=== PATIENT | male | born 1985 | race Caucasian/White ===

== ENCOUNTER 2018-10-17 08:16 | Emergency (ER) | payer OTHER ==
[2018-10-17] MEDS ORDERED: Diphtheria,Pertussis(Acell),Tetanus Vaccine 0.5 ML SDV IM ONE (08:32)
--- NOTE | 2018-10-17 08:57 | EDM.PDOC ---
ED HPI GENERAL MEDICAL PROBLEM - General Chief Complaint: Laceration Stated Complaint: SLICED FINGER ON BLADE [id number] Time Seen by Provider: 10/17/18 08:57 Source of Information: Reports: Patient, Family, RN, RN Notes Reviewed History Limitations: Reports: No Limitations - History of Present Illness INITIAL COMMENTS - FREE TEXT/NARRATIVE: Pt to ER with c/o laceration to the right middle finger. He states he was at work and at about 0800 he opened a tool box that had a razor blade in it, slicing the finger on the pad at the distal joint. Patient is unsure when his last tetanus was updated. Onset: Today, Sudden Location: Reports: Upper Extremity, Right Quality: Reports: Sharp Severity: Mild Improves with: Reports: None Right Middle Finger-Middle Pain Score (Numeric/FACES): 2 - Related Data Allergies Allergy/AdvReac Type Severity Reaction Status Date / Time amoxicillin Allergy Cannot Verified 10/17/18 08:20 Remember Home Meds: Home Meds . [No Known Home Meds] 10/17/18 [History] Past Medical History - Past Health History Medical/Surgical History: Denies Medical/Surgical History HEENT History: Reports: None Cardiovascular History: Reports: None Respiratory History: Reports: None Gastrointestinal History: Reports: None Genitourinary History: Reports: None Musculoskeletal History: Reports: None Neurological History: Reports: None Psychiatric History: Reports: None Endocrine/Metabolic History: Reports: None Hematologic History: Reports: None Immunologic History: Reports: None Oncologic (Cancer) History: Reports: None Dermatologic History: Reports: None - Infectious Disease History Infectious Disease History: Reports: None - Past Surgical History Head Surgeries/Procedures: Reports: None Social & Family History - Family History Family Medical History: Noncontributory - Tobacco Use Smoking Status *Q: Never Smoker Second Hand Smoke Exposure: No - Caffeine Use Caffeine Use: Reports: Soda - Recreational Drug Use Recreational Drug Use: No ED ROS GENERAL - Review of Systems Review Of Systems: ROS reveals no pertinent complaints other than HPI. ED EXAM, SKIN/RASH Exam: See Below Exam Limited By: No Limitations General Appearance: Alert, WD/WN, No Apparent Distress Eye Exam: Bilateral Eye: EOMI, Normal Inspection Ears: Normal External Exam, Hearing Grossly Normal Nose: Normal Inspection Throat/Mouth: Normal Inspection, Normal Voice, No Airway Compromise Head: Atraumatic, Normocephalic Neck: Normal Inspection, Supple, Non-Tender, Full Range of Motion Respiratory/Chest: No Respiratory Distress, Lungs Clear, Normal Breath Sounds, No Accessory Muscle Use, Chest Non-Tender Cardiovascular: Normal Peripheral Pulses, Regular Rate, Rhythm, No Edema, No Gallop, No JVD, No Murmur, No Rub Peripheral Pulses: 2+: Radial (L), Radial (R) GI/Abdominal: Normal Bowel Sounds, Soft, Non-Tender (Male) Exam: Deferred Rectal (Males) Exam: Deferred Back Exam: Normal Inspection, Full Range of Motion, NT Extremities: Normal Inspection, Normal Range of Motion, Non-Tender, No Pedal Edema, Normal Capillary Refill Neurological: Alert, Oriented, CN II-XII Intact, Normal Cognition, Normal Gait, Normal Reflexes, No Motor/Sensory Deficits Psychiatric: Normal Affect, Normal Mood Skin: Warm, Dry, Normal Color, No Rash Location, Skin: Upper Extremity, Right Characteristics: Linear, Other (3cm laceration to pad of middle finger at dip) Lymphatic: No Adenopathy ED SKIN PROCEDURES - Laceration/Wound Repair Right Ventral Digit - 3rd (Middle) Lac/Wound length In cm: 3 Appearance: Subcutaneous Distal NVT: Neuro & Vascular Intact Anesthetic Type: Local Local Anesthesia - Lidocaine (Xylocaine): 1% Plain Local Anesthetic Volume: 4cc Skin Prep: Chlorhexidine (Hibiciens) Exploration/Debridement/Repair: Wound Explored, In a Bloodless Field, Explored to Base, No Foreign Material Found Closed with: Sutures Suture Size: 4-0 # of Sutures: 4 Suture Type: Nylon, Interrupted Drain Placement: No Sterile Dressing Applied: Provider Tetanus Status Addressed: Yes Complications: No Course - Vital Signs Last Recorded V/S: Last Vital Signs Temp 97.3 F 10/17/18 08:21 Pulse 80 10/17/18 08:21 Resp 16 10/17/18 08:21 BP 125/71 10/17/18 08:21 Pulse Ox 99 10/17/18 08:21 - Orders/Labs/Meds Orders: Active Orders 24 hr Category Date Time Status Vaccines to be Administered [RC] PER UNIT ROUTINE Care 10/17/18 08:32 Active Meds: Medications Discontinued Medications Generic Name Dose Route Start Last Admin Trade Name Freq PRN Reason Stop Dose Admin Bacitracin 1 dose 10/17/18 08:59 Bacitracin Oint 1 Gm TOP 10/17/18 09:00 ONETIME ONE Diphtheria/Tetanus/Acell Pertussis 0.5 ml 10/17/18 08:32 10/17/18 08:36 Adacel IM 10/17/18 08:33 0.5 ml .ONCE ONE Administration Lidocaine HCl 30 ml 10/17/18 08:59 Xylocaine-Mpf 1% INJECT 10/17/18 09:00 ONETIME ONE Departure - Departure Time of Disposition: :19 Disposition: Home, Self-Care 01 Condition: Good Clinical Impression: Laceration - Discharge Information *PRESCRIPTION DRUG MONITORING PROGRAM REVIEWED*: No *COPY OF PRESCRIPTION DRUG MONITORING REPORT IN PATIENT MONTSERRAT: No Instructions: Laceration Care, Adult, [id number], Stitches, Garrett, or Adhesive Wound Closure, [id number] Forms: ED Department Discharge Additional Instructions: Return to clinic in 7-10 days to have sutures removed Keep area clean and dry Monitor for signs of infection, red, warm pain, drainage. - My Orders Last 24 Hours: My Active Orders 10/17/18 08:32 Vaccines to be Administered [RC] PER UNIT ROUTINE - Assessment/Plan Last 24 Hours: My Active Orders 10/17/18 08:32 Vaccines to be Administered [RC] PER UNIT ROUTINE
[2018-10-17] MEDS ORDERED: Bacitracin Oint 1 GM U/D Packet TOP ONE (08:59)
[2018-10-17] MEDS ORDERED: Lidocaine 1% 30 ML SDV INJECT ONE (08:59)
== END 2018-10-17 09:25 | disposition home or self-care (01) ==
LOC: DL.ED 08:16
DX: S61.212A Laceration without foreign body of right middle finger without damage to nail, initial encounter (principal); Z88.1 Allergy status to other antibiotic agents; Z23 Encounter for immunization; W27.8XXA Contact with other nonpowered hand tool, initial encounter
CPT/HCPCS: 12002; 90471; 90715; 99282; J2001; 12001

== ENCOUNTER 2020-11-04 11:26 | Emergency (ER) | payer OTHER ==
--- NOTE | 2020-11-04 12:22 | CR ---
EXAMINATION: Ankle Min 3V Rt SEX: Male AGE: 35 years CLINICAL HISTORY: 35-year-old male injured right ankle. Pain. Interpretation: Abnormal. 1. *Acute, nondisplaced (slight diastases) bimalleolar FRACTURES (medial and posteriorly) distal right tibia. 2. Asymmetric pronounced soft tissue swelling over the medial malleolus and large right ankle joint effusion. 3. Mild pes cavus and hammertoe deformities. No heel spurs. 4. Tibiotalar mortise joints symmetrically intact without arthritic degenerative change. 5. No sign of other fracture or dislocation right ankle. 6. No foreign bodies.
--- NOTE | 2020-11-04 12:28 | EDM.PDOC ---
ED HPI GENERAL MEDICAL PROBLEM - General Chief Complaint: Lower Extremity Injury/Pain Stated Complaint: HURT RIGHT ANKLE Time Seen by Provider: 11/04/20 12:22 Source of Information: Reports: Patient, RN, RN Notes Reviewed History Limitations: Reports: No Limitations - History of Present Illness INITIAL COMMENTS - FREE TEXT/NARRATIVE: Patient is a 35-year-old male who presents to ER with complaint of right ankle pain. Patient states he was changing replacing a tire on a bus, when he slipped in oil and fell. Patient denies hitting his head or getting knocked out. Rates pain 6/10. Patient denies any health problems, denies smoking or alcohol use. Onset: Today, Sudden Right Ankle Pain Score (Numeric/FACES): 6 - Related Data Allergies Allergy/AdvReac Type Severity Reaction Status Date / Time amoxicillin Allergy Cannot Verified 11/04/20 11:43 Remember Home Meds: Home Meds . [No Known Home Meds] 10/17/18 [History] Past Medical History - Past Health History Medical/Surgical History: Denies Medical/Surgical History HEENT History: Reports: None Cardiovascular History: Reports: None Respiratory History: Reports: None Gastrointestinal History: Reports: None Genitourinary History: Reports: None Musculoskeletal History: Reports: None Neurological History: Reports: None Psychiatric History: Reports: None Endocrine/Metabolic History: Reports: None Hematologic History: Reports: None Immunologic History: Reports: None Oncologic (Cancer) History: Reports: None Dermatologic History: Reports: None - Infectious Disease History Infectious Disease History: Reports: None - Past Surgical History Head Surgeries/Procedures: Reports: None Social & Family History - Family History Family Medical History: No Pertinent Family History - Tobacco Use Used Tobacco, but Quit: No - Caffeine Use Caffeine Use: Reports: Coffee - Recreational Drug Use Recreational Drug Use: No Review of Systems - Review of Systems Review Of Systems: Comprehensive ROS is negative, except as noted in HPI. ED EXAM, GENERAL - Physical Exam Exam: See Below Exam Limited By: No Limitations General Appearance: Alert, WD/WN, No Apparent Distress Eye Exam: Bilateral Eye: EOMI, Normal Inspection Ears: Normal External Exam, Hearing Grossly Normal Nose: Normal Inspection Throat/Mouth: Normal Inspection, Normal Voice, No Airway Compromise Head: Atraumatic, Normocephalic Neck: Normal Inspection, Supple, Non-Tender, Full Range of Motion Respiratory/Chest: No Respiratory Distress, Lungs Clear, Normal Breath Sounds, No Accessory Muscle Use, Chest Non-Tender Cardiovascular: Normal Peripheral Pulses, Regular Rate, Rhythm, No Edema, No Gallop, No JVD, No Murmur, No Rub Peripheral Pulses: 2+: Radial (L), Radial (R), Dorsalis Pedis (R) GI/Abdominal: Normal Bowel Sounds, Soft, Non-Tender (Male) Exam: Deferred Rectal (Males) Exam: Deferred Back Exam: Normal Inspection, Full Range of Motion, NT Extremities: Joint Swelling (right ankle), Leg Pain (right ankle), Limited Range of Motion (right ankle) Neurological: Alert, Oriented, CN II-XII Intact, Normal Cognition, Normal Reflexes, No Motor/Sensory Deficits Psychiatric: Normal Affect, Normal Mood Skin Exam: Warm, Dry, Intact, Normal Color, No Rash Lymphatic: No Adenopathy Course - Vital Signs Last Recorded V/S: Last Vital Signs Temp 96.6 F L 11/04/20 11:35 Pulse 91 11/04/20 11:35 Resp 20 11/04/20 11:35 BP 132/72 11/04/20 11:35 Pulse Ox 98 11/04/20 11:35 - Orders/Labs/Meds Meds: Medications Discontinued Medications Generic Name Dose Route Start Last Admin Trade Name Freq PRN Reason Stop Dose Admin Hydrocodone Bitart/Acetaminophen 1 tab 11/04/20 12:30 11/04/20 12:54 Acetaminophen/Hydrocodone 325-10 Mg Tab PO 11/04/20 12:31 1 tab ONETIME ONE Administration - Radiology Interpretation Free Text/Narrative:: Right ankle xray: 1. Acute nondisplaced, slight diastasis, bimalleolar fractures, medial and posteriorly, distal right tibia 2. Asymmetric pronounced soft tissue swelling over the medial malleolus and large right ankle joint effusion 3. Mild pes cavus and hammertoe deformities. No heel spurs 4. Tibiotalar mortise joint symmetrically intact without arthritic degenerative change 5. No sign of other fracture dislocation right ankle 6. No foreign bodies Right knee xray: 1. Acute nondisplaced spiral fracture proximal diaphysis of the right fibula 2. Symmetric right knee joint spacing. No suprapatellar bursal effusion. No foreign bodies 3. No sign of other fracture or dislocation right knee. No radiopaque loose joint bodies, flabella posteriorly See rad report - Re-Assessments/Exams Free Text/Narrative Re-Assessment/Exam: 11/04/20 13:33 Discussed patient case with Dr. Suarez who states a long bone splint and he would like to see the patient in clinic on Saturday. He states surgery is likely. Departure - Departure Time of Disposition: 13:26 Disposition: Home, Self-Care 01 Condition: Good Clinical Impression: Fracture, fibula, proximal Qualifiers: Encounter type: initial encounter Fracture type: closed Fracture morphology: unspecified fracture morphology Laterality: right Qualified Code(s): S82.831A - Other fracture of upper and lower end of right fibula, initial encounter for closed fracture Bimalleolar ankle fracture Qualifiers: Encounter type: initial encounter Fracture type: closed Laterality: right Qualified Code(s): S82.841A - Displaced bimalleolar fracture of right lower leg, initial encounter for closed fracture - Discharge Information *PRESCRIPTION DRUG MONITORING PROGRAM REVIEWED*: No *COPY OF PRESCRIPTION DRUG MONITORING REPORT IN PATIENT MONTSERRAT: No Instructions: Crutch Use, Adult, [id number], Fibular Fracture Rehab- SportsMed, Cast or Splint Care, Adult, [id number], Nondisplaced Bimalleolar Ankle Fracture Treated With Immobilization Forms: ED Department Discharge Additional Instructions: Ice the area as tolerated May use Tylenol and/or ibuprofen as directed for pain Rest and elevate the area as much as possible this Follow-up with Ortho in [place] on Saturday, Dr. Suarez, [facility] 10:30 [facility] [address] [facility] [address] [phone] Return to the ER with any worsening of problems Keep the area clean and dry, do not get the splint wet Use crutches, no weightbearing Sepsis Event Note (ED) - Evaluation Sepsis Screening Result: No Definite Risk - Focused Exam Vital Signs: Vital Signs Temp Pulse Resp BP Pulse Ox 11/04/20 11:35 96.6 F L 91 20 132/72 98
[2020-11-04] MEDS ORDERED: Acetaminophen/HYDROcodone 325-10 MG Tab PO ONE (12:30)
--- NOTE | 2020-11-04 12:53 | CR ---
EXAMINATION: Knee 2V Rt SEX: Male AGE: 35 years CLINICAL HISTORY: 35-year-old male with acute injury right ankle (bimalleolar fractures). Interpretation: Abnormal. 1. Acute nondisplaced spiral fracture proximal diaphysis of the right fibula. 2. Symmetric right knee joint spacing. No suprapatellar bursal effusion. No foreign bodies. 3. No sign of other fracture or dislocation right knee. No radiopaque loose joint bodies (fabella posteriorly)
== END 2020-11-04 13:39 | disposition home or self-care (01) ==
LOC: DL.ED 11:26
DX: S82.831A Other fracture of upper and lower end of right fibula, initial encounter for closed fracture (principal); S82.841A Displaced bimalleolar fracture of right lower leg, initial encounter for closed fracture; Z88.0 Allergy status to penicillin; W01.0XXA Fall on same level from slipping, tripping and stumbling without subsequent striking against object, initial encounter
CPT/HCPCS: 29505; 29515; 73560; 73610; 99283; 99284; A9270

== ENCOUNTER 2025-02-09 10:25 | Emergency (ER) | payer OTHER | END 2025-02-09 11:24 | disposition home or self-care (01) | LOC: DL.ED 10:25 | DX: S93.492A Sprain of other ligament of left ankle, initial encounter (principal); Z88.0 Allergy status to penicillin; X50.1XXA Overexertion from prolonged static or awkward postures, initial encounter; Y93.89 Activity, other specified | CPT/HCPCS: 73610-LT; 99283 ==